=== PATIENT | male | born 1975 | race Caucasian/White ===

== ENCOUNTER 2019-06-16 14:22 | Emergency (ER) | payer BC ==
[2019-06-16 15:13] VITALS: BP 120/76
--- NOTE | 2019-06-16 15:28 | UC ---
Elbow Pain - HPI Summary HPI Summary: Started with some left elbow pain with redness last night. No known trauma. Redness spreading quite a bit today. - History of Current Complaint Chief Complaint: KRYSTLEkin Stated Complaint: RIGHT ELBOW COMPLAINT Time Seen by Provider: 06/16/19 15:21 Hx Obtained From: Patient Onset/Duration: Days - 2, Worse Since - today Severity Initially: Moderate Severity Currently: Mild Pain Intensity: 3 Location Of Pain: Is Discrete @ - right posterior elbow Character: Dull, Aching Aggravating Factor(s): Movement Alleviating Factor(s): Nothing Associated Signs And Symptoms: Positive: Swelling, Redness. Negative: Bruising , Fever, Weakness - Allergies/Home Medications Allergies/Adverse Reactions: Allergies Allergy/AdvReac Type Severity Reaction Status Date / Time No Known Allergies Allergy Verified 06/16/19 15:13 PMH/Surg Hx/FS Hx/Imm Hx Previously Healthy: Yes - Surgical History Surgical History: Yes Surgery Procedure, Year, and Place: Hernia repair, vasectomy - Family History Known Family History: Positive: Cardiac Disease, Hypertension, Diabetes - Social History Occupation: Employed Full-time Lives: With Family Alcohol Use: Occasionally Substance Use Type: None Smoking Status (MU): Never Smoked Tobacco Review of Systems All Other Systems Reviewed And Are Negative: Yes Constitutional: Positive: Chills, Fatigue Skin: Positive: Other - redness over the right elbow Physical Exam Triage Information Reviewed: Yes Appearance: Well-Appearing, No Pain Distress, Well-Nourished Vital Signs: Initial Vital Signs Temp 98.6 F 06/16/19 15:09 Pulse 79 06/16/19 15:09 Resp 18 06/16/19 15:09 BP 120/76 06/16/19 15:09 Pulse Ox 100 06/16/19 15:09 Vital Signs Reviewed: Yes Eyes: Positive: Conjunctiva Clear Neck exam: Normal Respiratory Exam: Normal Cardiovascular Exam: Normal Musculoskeletal: Positive: ROM Limited @ - right elbow extension Neurological Exam: Normal Psychological Exam: Normal Skin: Positive: Other - erythema over the right elbow. Images Front/Back of Body, Lg ([place]): 1 - 24x15 cm erythema with some bogginess over the olecranon bursa. Elbow Pain Course/Dx - Differential Dx/Diagnosis Differential Diagnosis/HQI/PQRI: Bursitis, Cellulitis, Sprain, Strain, Tendonitis Provider Diagnosis: Cellulitis of right arm Discharge ED - Sign-Out/Discharge Documenting (check all that apply): Patient Departure All imaging exams completed and their final reports reviewed: No Studies - Discharge Plan Condition: Stable Disposition: HOME Prescriptions: Cephalexin CAP* [Keflex 500 CAP*] 500 mg PO QID #28 cap Patient Education Materials: Cellulitis (ED), Cephalexin (By mouth), Elbow Bursitis (ED) Referrals: Manolo Sharma DO [Primary Care Provider] - Additional Instructions: Do warm packs over the area every 2-3 hours. - Billing Disposition and Condition Condition: STABLE Disposition: Home
== END 2019-06-16 15:40 | disposition home or self-care (01) ==
LOC: UCCORT 14:22
DX: L03.114 Cellulitis of left upper limb (principal)
CPT/HCPCS: 99202; G0463